=== PATIENT | male | born 1990 | race African-American/Black ===

== ENCOUNTER 2023-06-15 12:18 | Emergency (ER) | payer SELFPAY ==
[2023-06-15] MEDS ORDERED: Ibuprofen 800 MG TAB ONE (13:09)
== END 2023-06-15 14:14 | disposition home or self-care (01) ==
LOC: ERS 12:18
DX: S11.2 Open wound of pharynx and cervical esophagus (principal); R13.10 Dysphagia, unspecified; I10 Essential (primary) hypertension; E78.5 Hyperlipidemia, unspecified; W34.00XA Accidental discharge from unspecified firearms or gun, initial encounter; Z79.899 Other long term (current) drug therapy
CPT/HCPCS: 72125

== ENCOUNTER 2023-07-03 14:29 | Emergency (ER) | payer SELFPAY ==
[2023-07-03] MEDS ORDERED: Cyclobenzaprine 10 MG TAB ONE (15:06)
== END 2023-07-03 15:07 | disposition home or self-care (01) ==
LOC: ERS 14:29
DX: M26.602 Left temporomandibular joint disorder, unspecified (principal); I10 Essential (primary) hypertension
CPT/HCPCS: 99283